=== PATIENT | female | born 1985 | race Caucasian/White ===

== ENCOUNTER 2022-02-03 08:15 | Emergency (ER) | payer MEDICAID, SELFPAY ==
[2022-02-03 08:29] VITALS: BP 123/82; PULSE 76; RESP 12; TEMP 37.2; O2SAT 99; BMI 35.5
[2022-02-03 08:32] VITALS: PULSE 86; O2SAT 98
--- NOTE | 2022-02-03 08:44 | W.ED.SKABFB ---
HPI - Skin/Abscess/Foreign Bdy General: Chief complaint: Extremity Injury, Lower Stated complaint: R ankle rash Time Seen by Provider: 02/03/22 08:33 Source: patient Mode of arrival: ambulatory Limitations: no limitations History of Present Illness: Patient is a nice 36-year-old female presents to ED today with a complaint of a skin lesion to her right ankle that she first began noticing approximately a week ago. She states the lesion is not painful or pruritic. She denies any insect bite or tick bites to the area. She states she is not having any pain or soreness to the joint. No injury or trauma. She has no systemic symptoms. MD complaint: rash Onset (ago): day(s) Tetanus up to date: yes Location: [facility] Relieving factors: none Exacerbating factors: none Context: none Associated symptoms: Reports no associated symptoms; Deny chills, fever(s), nausea or vomiting Treatments prior to arrival: none Review of Systems Const: Denies: fever(s), chills, body aches, fatigue or malaise Eyes: Denies: change in vision or blurry vision ENMT: Denies: throat pain or odynophagia Card: Denies: chest pain, palpitations, irregular heart rhythm, lightheadedness, syncope or dyspnea on exertion Resp: Denies: dyspnea, productive cough or pain on inspiration GI: Denies: abdominal pain, nausea, vomiting, heartburn or diarrhea : Denies: dysuria Musc: Denies: neck pain, back pain, extremity pain, joint pain, joint redness or joint warmth Skin/Breast: Reports: rash; Denies: pruritus Neuro: Denies: headache(s), numbness in extremities, weakness in extremities or sensory changes Physical Exam Const: COMMON NORMALS: no acute distress, patient oriented x3, no limitations and alert GENERAL APPEARANCE: cooperative ORIENTATION/CONSCIOUSNESS: Yes awake, Yes oriented to person, Yes oriented to place and Yes oriented to time Resp: COMMON NORMALS: normal respiratory effort and clear to auscultation bilaterally AUSCULTATION: clear to auscultation bilaterally Cardio: COMMON NORMALS: regular rate and regular rhythm RATE: regular rate RHYTHM: regular rhythm Extremity: COMMON NORMALS: normal to inspection, full ROM, capillary refill normal, no joint enlargement, no clubbing, cyanosis or edema, no calf tenderness and no pedal edema NARRATIVE EXTREMITY EXAM: see skin exam below GENERAL: Yes normal exam except as noted Neuro: OVIDIO COMA SCALE: document [facility] findings [place] coma scale eye opening: Spontaneous [place] coma scale verbal response: Orientated [place]vid[place] coma scale motor response: Obey commands [place] coma scale total score: 15 COMMON NORMALS: patient oriented x3, moves all extremities, no focal motor deficits, no sensory deficits noted and gait normal SENSORIUM/ORIENTATION: Yes alert, Yes oriented to person, Yes oriented to place and Yes oriented to time Skin: LESIONS: lesion noted OTHER: patient has a lesion/rash located to her lateral R ankle that measures roughly 8x6 cm and consists of erythematous and purplish/hemorrhagic appearing papules; there is no central clearing or classic erythema migrans appearance; there does not appear to be any skin breakdown or necrosis; no fluid/vesicular formations Course Vital Signs: Vital signs: Vital Signs Temperature 98.9 F 02/03/22 08:29 Pulse Rate 76 02/03/22 08:29 Respiratory Rate 12 02/03/22 08:29 Blood Pressure 123/82 02/03/22 08:29 Pulse Oximetry 99 02/03/22 08:29 MDM - Skin/Abscess/Foreign Bdy Medicial Decision Making Patient states her was concerned for possible Lyme disease. Lesion does not classically look likeerythema migrans. She has no systemic symptoms. We did discuss placing her on prophylactic doxycycline but patient declines. I did recommend we get a tick panel down to lab she was agreeable to. We will contact her with results if anything comes back positive. Strict return to ED precautions given. Recommend close observation at this point. Discharge Plan Discharge Patient Disposition: Home Clinical Impression: Skin lesion of right lower extremity Condition: Stable Discharge Orders: Discharge ED (Routine); Ordered 02/03/22 Ordered By: Daisha Moraes Referrals: Amy Olvera DO [Primary Care Provider] - Activity Restrictions/Additional Instructions: As we discussed you should be contacted on your tick panel results if anything returns positive. Monitor lesion closely for any worsening spread. Need to seek medical reevaluation if you begin having systemic symptoms such as headache, fevers, neck/back pain, abdominal pains, vomiting, diarrhea, or any other concerns you may have. Coding Level of Care Code ED Quality Assurance Manager for [facility]
[2022-02-03 09:16] VITALS: BP 131/83; PULSE 89; O2SAT 99
[2022-02-04 13:17] LABS: Lyme AB Screen <0.90 index
[2022-02-09 22:15] LABS: E. Chaffeensis AB IGG <1:64; E. Chaffeensis AB IGM <1:20
[2022-02-10 18:19] LABS: RMSF IGG NOT DETECTED; RMSF IGM NOT DETECTED
== END 2022-02-03 09:07 | disposition home or self-care (01) ==
PROVIDERS: Emergency Provider Physician Assistant; PCP Family Medicine
DX: L98.9 Disorder of the skin and subcutaneous tissue, unspecified (principal)
CPT/HCPCS: 86618; 86666; 86757; 99283